=== PATIENT | male | born 1965 | race Caucasian/White ===

== ENCOUNTER → 2016-11-01 | Outpatient (CLI) | payer OTHER ==
[~2016-11-01] MED LIST: ASCORBIC ACID500 M2 PO; BACTRIM DS 8001 TAB PO; CARDURA 1MG TAB1 MG PO; CYCLOBENZAPRINE10 MG PO; ECOTRIN81 MG PO; FLEXERIL10 MG PO; GABAPENTIN300 MG PO; HYDROCODONE 7.51 TAB PO; INDOCIN25 MG PO; LIPITOR20 MG PO; LOSARTAN POTASS1 TA4 PO; MASON NATURAL100 MG PO; MEDROL 4MG. DOSE4 MG PO; METFORMIN1000 MG PO; METOPROLOL SUC100 M1 PO; METOPROLOL TAR100 MG PO; ONGLYZA2.5 MG PO; RESTORIL 30MG C30 MG PO; SULFACETAMIDE S15 M1 OP; TOPROL XL 50MG50 MG PO; VICODIN 7.5/501 EACH PO
[2016-11-01 07:30] LABS: LYMPH # 2.6 K/mm3 (0.7-4.5); LYMPH % 37.7 % (10-50)
[2016-11-01 08:24] LABS: BUN 14 mg/dL (7-18); PROSTATE-SPECIFIC AG SCREEEN 0.3 ng/mL (0.0-4.0)
[2016-11-01 08:28] LABS: GFR (ESTIMATED) 63 ML/MIN (>60)
== END ==
LOC: LAB 07:10
PROVIDERS: Family Medicine
DX: I10 Essential (primary) hypertension (principal); E78.5 Hyperlipidemia, unspecified; M10.9 Gout, unspecified; R73.9 Hyperglycemia, unspecified
CPT/HCPCS: G0103

== ENCOUNTER → 2017-03-31 | Outpatient (CLI) | payer OTHER ==
[2017-03-31 11:02] LABS: BUN 15 mg/dL (7-18)
[2017-03-31 11:07] LABS: GFR (ESTIMATED) 78 ML/MIN (>60)
== END ==
LOC: LAB 07:09
PROVIDERS: Internal Medicine Cardiovascular Disease
DX: I25.10 Atherosclerotic heart disease of native coronary artery without angina pectoris (principal); E78.4 Other hyperlipidemia; I10 Essential (primary) hypertension

== ENCOUNTER → 2017-04-17 | Outpatient (CLI) | payer OTHER ==
[~2017-04-17] MED LIST changes: +ALLOPURINOL300 MG PO; +COLCRYS0.6 M1 PO; +ELIQUIS5 MG PO; +FLONASE 50 MCG16 GM; +FUROSEMIDE40 MG PO; +NAPROXEN SODIU500 MG PO; +PRILOSEC20 M1 PO
--- NOTE | 2017-04-17 13:51 | RADIOLOGY REPORT PS360 ---
CT ABD PELVIS W/O CONTRAST CLINICAL INDICATION: Bilateral flank pain, history of renal stones RENAL STONES ORDERING PHYSICIAN: Dandy Chopar MD PATIENT AGE: 51 years COMPARISON: 06/08/2015 TECHNIQUE: Axial images obtained with sagittal and coronal reformats. PROCEDURE: Oral Contrast: None IV Contrast: None . FINDINGS: Lung bases are clear. There are old right-sided rib fractures posteriorly. There has been prior gastric surgery. The liver, gallbladder, spleen, and pancreas have an unremarkable unenhanced CT appearance. There is a 2.7 cm left adrenal nodule the internal density measures -7 Hounsfield units consistent with an adenoma. There are nonobstructing bilateral renal calculi. The largest stone on the right is in the lower pole and measures approximately 3 mm. There is a large calculus involving the lower pole the left kidney measuring 2.5 x 1.5 cm assuming the shape of the lower pole calyx and infundibulum consistent with a staghorn calculus. Other smaller stones are present on the left as well. No obstructing ureteral calculi evident. No bladder calculi or bladder mass apparent. There is minimal ectasia of the mid abdominal aorta at 2.6 cm. There is mild uniform aneurysmal dilatation of the proximal common iliac on the right at 2.6 cm. No evidence of retroperitoneal hemorrhage No evidence of appendicitis. There are appendicoliths present. No evidence of diverticulitis, free air. Scattered air-fluid levels are present in the small bowel in the upper abdomen nonspecific. Small amount fluid is present in the pelvis. No acute bony anomalies. IMPRESSION: 1. Bilateral nephrolithiasis with staghorn calculus in the lower pole of the left kidney. . No obstructing ureteral calculi or hydronephrosis. 2. 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 3. Small amount fluid in the pelvis. 4. Scattered air-fluid levels within the small bowel in the upper abdomen nonspecific which may be seen with enteritis
== END ==
LOC: RAD 04-15 14:15
DX: N20.0 Calculus of kidney (principal)